=== PATIENT | female | born 1985 | race Two or more races ===

== ENCOUNTER 2022-12-21 08:13 | Emergency (ER) | payer MEDICAID, OTHER ==
[~2022-12-21] VITALS: Ht 160 cm; Wt 77.1 kg
[~2022-12-21 08:13] MED LIST: PREN-125
[2022-12-21 09:30] LABS: APPEARANCE,URINE CLEAR (CLEAR); BILIRUBIN,URINE NEGATIVE (NEGATIVE); BLOOD, URINE TRACE-INTA Ery/uL (NEGATIVE); KETONES,URINE NEGATIVE (NEGATIVE); LEUKOCYTE ESTERASE ,URINE 1+ (NEGATIVE); NITRITE, URINE NEGATIVE (NEGATIVE); PH,URINE 6.5 (5.0-8.0); PROTEIN,URINE NEGATIVE (NEGATIVE); UGLUCOSE NEGATIVE (NEGATIVE); UROBILINOGEN,URINE 0.2 EU/dL (0.2)
[2022-12-21] MEDS ORDERED: HYDROCODONE/APAP 10/325MG TABLET PO ONE (09:30)
[2022-12-21] MEDS ORDERED: KETOROLAC TROMETHAMINE INJ 60 MG/2 ML VIAL IM ONE (09:30)
[2022-12-21 09:31] LABS: COLOR,URINE LIGHT YELLOW (YELLOW)
[2022-12-21 09:36] LABS: PREGNANCY TEST URINE QUAL NEGATIVE (NEGATIVE)
[2022-12-21 09:51] LABS: ADD URINE CULTURE YES; BACTERIA,URINE Moderate /HPF (None Seen); RBC,URINE 0-2 /HPF (0-2); SQUAMOUS EPITHELIAL CELL,UR Moderate /HPF (None Seen); YEAST,URINE Few /HPF (None Seen)
[2022-12-21] MEDS ORDERED: KETOROLAC TROMETHAMINE INJ 30 MG/ML VIAL ONE (10:01)
[2022-12-21] MEDS ORDERED: HYDROCODONE/APAP 10/325MG TABLET ONE (10:01)
[2022-12-21] MEDS ORDERED: NAPR-1164 PO (14:50)
[2022-12-21] MEDS ORDERED: PRED20TA PO (14:50)
[2022-12-21] MEDS ORDERED: CYCL10TA9 PO (14:50)
[2022-12-21] MEDS ORDERED: FLUCONAZOLE (100 MG) 100 MG TABLET PO ONE (15:00)
[2022-12-21] MEDS ORDERED: predniSONE 50 MG TABLET PO ONE (15:00)
[2022-12-21] MEDS ORDERED: FLUCONAZOLE (100 MG) 100 MG TABLET ONE (15:00)
[2022-12-21] MEDS ORDERED: predniSONE 20 MG TABLET ONE (15:00)
[2022-12-21 15:07] VITALS: BP 126/67; TEMP 98.3; O2SAT 100
== END 2022-12-21 15:08 | disposition home or self-care (01) ==
LOC: ER 08:19
DX: M54.50 Low back pain, unspecified (principal); R53.1 Weakness
CPT/HCPCS: 99285; 72148; 96372; 87086; 84703; 81001; J7512; J1885